=== PATIENT | male | born 1990 | race Caucasian/White ===

== ENCOUNTER 2016-12-08 10:55 | Emergency (ER) | payer SELFPAY ==
[~2016-12-08] VITALS: Ht 175.3 cm; Wt 96.0 kg
[~2016-12-08 10:55] MED LIST: CYCL-36 PO; IBUP-232 PO
[2016-12-08 11:00] VITALS: BP 156/89; PULSE 87; RESP 17; TEMP 98.2; O2SAT 97
[2016-12-08] MEDS ORDERED: TETANUS/DIPHTHERIA TOXOID ADULT 0.5 ML VIAL IM ONE (11:15)
--- NOTE | 2016-12-08 11:19 | PD ---
HPI Chief Complaint: Laceration/Skin Injury Time Seen by Provider: 11:05 Travel History International Travel<30 days: No Contact w/Intl Traveler<30days: No Traveled to known affect area: No History of Present Illness HPI 26-year-old male presents the emergency department with laceration to the dorsal left middle finger from a steak knife. Patient states he is trying to cut a hole through a curtain when his knife slipped and cut his finger. Bleeding is currently controlled. He has no loss of function or sensation. Pain is minimal. He is unsure of his last tetanus shot. He is allergic to Ceclor and Keflex. [facility] Past Medical History Medical History: Denies Significant Hx Diminished Hearing: No Musculoskeletal: Yes (SPRAINS AND STRAINS OVER THE PAST FEW YEARS) Tetanus Vaccination: Unknown Past Surgical History Tonsillectomy: Yes (94) Social History Alcohol Use: Yes (SOC) Tobacco Use: No Substance Use: No Allergies-Medications (Allergen,Severity, Reaction): Coded Allergies: Ceclor (Verified Allergy, Mild, 12/08/16) Keflex (Verified Allergy, Mild, 12/08/16) Reported Meds & Prescriptions Reported Meds & Active Scripts Active No Active Prescriptions or Reported Medications Review of Systems Except as stated in HPI: all other systems reviewed are Neg General / Constitutional: No: Fever Eyes: No: Visual changes HENT: No: Headaches Cardiovascular: No: Chest Pain or Discomfort Respiratory: No: Shortness of Breath Gastrointestinal: No: Abdominal Pain Genitourinary: No: Dysuria Musculoskeletal: No: Pain Skin: No Rash Neurologic: No: Weakness Psychiatric: No: Depression Endocrine: No: Polydipsia Hematologic/Lymphatic: No: Easy Bruising Physical Exam Narrative GENERAL: Patient is in no acute distress. SKIN: Warm and dry. Normal color. Normal turgor. Patient has a 1-1/2 cm linear partial-thickness laceration to the dorsal left middle finger between the DIP and MIP joints. There is no involvement of the underlying tissues. NECK: Trachea midline. Supple. CARDIOVASCULAR: Regular rate and rhythm. RESPIRATORY: No accessory muscle use. MUSCULOSKELETAL: Extremities without clubbing, cyanosis, or edema. No obvious deformities. NEUROLOGICAL: Awake and alert. No obvious cranial nerve deficits. Motor grossly within normal limits. Five out of 5 muscle strength in the arms and legs. Normal speech. PSYCHIATRIC: Appropriate mood and affect; insight and judgment normal. Data Data Last Documented VS Vital Signs Date Time Temp Pulse Resp B/P Pulse Ox O2 Delivery O2 Flow Rate FiO2 12/08/16 11:00 98.2 87 17 156/89 97 MDM Medical Decision Making Medical Screen Exam Complete: Yes Emergency Medical Condition: Yes Differential Diagnosis Laceration. Need for skin closure. Need for tetanus. Narrative Course Patient is medically stable. Patient is given tetanus 0.5 mg IM. Wound is closed. See procedure note. Dressing and wound instructions reviewed. Follow-up as needed. Procedures Procedure Narrative LACERATION LOCATION: Left dorsal middle finger LENGTH: 1.5 cm NUMBER OF STITCHES/ARIANNA: 3 Steri-Strips, Dermabond REPAIR: The area of the laceration was prepped with pHisoHex soap and sterilely draped. The wound was copiously irrigated and explored without evidence of foreign body, tendon injury or neurovascular injury. The wound was closed using 3 Steri-Strips, benzoin tincture, and Dermabond. This was a single layer repair. A sterile dressing was applied. The patient was advised to keep the dressing clean and dry. Patient tolerated the procedure well. Diagnosis Primary Impression: Laceration of left middle finger Qualified Code: S61.213A - Laceration of left middle finger without foreign body without damage to nail, initial encounter Patient Instructions: Finger Laceration (ED), General Instructions, Tetanus (ED ) Additional Instructions: Patient is given tetanus 0.5 mg IM. Wound is closed. Dressing and wound instructions reviewed. Follow-up as needed. Med/Other Pt SpecificInfo: No Meds Exist/No RX given, Wound Care Scripts No Active Prescriptions or Reported Meds Disposition: 01 DISCHARGE HOME Condition: Stable Iggy Phelps Dec 08, 2016 11:19
== END 2016-12-08 11:28 | disposition home or self-care (01) ==
LOC: PHEFT 10:55
DX: S61.213A Laceration without foreign body of left middle finger without damage to nail, initial encounter (principal); W26.0XXA Contact with knife, initial encounter; Y92.009 Unspecified place in unspecified non-institutional (private) residence as the place of occurrence of the external cause; Z23 Encounter for immunization
CPT/HCPCS: 12001; 90471; 90714